=== PATIENT | female | born 1955 | race Caucasian/White ===

== ENCOUNTER 2024-06-21 14:39 | Emergency (ER) | payer SELFPAY ==
[2024-06-21 14:56] VITALS: BP 195/84; PULSE 89; RESP 18; TEMP 98.2; BMI 20.2
[2024-06-21 15:28] LABS: HEMATOCRIT 41.4 % (32.4-45.2); HEMOGLOBIN 13.8 G/dL (10.7-15.3); MCH 29.2 pg (25.7-33.7); MCHC 33.4 g/dl (32.0-36.0); MEAN CELL VOLUME 87.4 fl (80-96); MEAN PLT VOLUME 7.9 fl (7.5-11.1); PLATELET COUNT 383.4 10^3/uL (134-434); RBC 4.74 10^6/uL (3.60-5.2); RDW 13.8 % (11.6-15.6); WHITE BLOOD COUNT 7.2 10^3/uL (4.0-10.8)
[2024-06-21] MEDS: SODIUM CHLORIDE 1,000 ML IV STA ×2 (15:30→16:46)
[2024-06-21 15:36] LABS: ALBUMIN 4.5 g/dl (3.4-5.0); BILIRUBIN,TOTAL 0.3 mg/dl (0.2-1); CREATININE 1.1 mg/dl (0.6-1.3); POTASSIUM 5.1 mmol/L (3.5-5.1); TOT PROT 7.5 g/dl (6.4-8.2)
[2024-06-21 15:46] LABS: PLATELET ESTIMATE ADEQUATE
[2024-06-21 20:07] LABS: HIV INTERPRETATION NEGATIVE (NEGATIVE)
== END 2024-06-21 18:14 | disposition home or self-care (01) ==
LOC: FER 14:39
PROC: 3E0337Z Introduction of Electrolytic and Water Balance Substance into Peripheral Vein, Percutaneous Approach (ICD-10-PCS; principal; 2024-06-21)
PROC: 3E0337Z Introduction of Electrolytic and Water Balance Substance into Peripheral Vein, Percutaneous Approach (ICD-10-PCS; 2024-06-21)
DX: E11.65 Type 2 diabetes mellitus with hyperglycemia (principal); Z79.84 Long term (current) use of oral hypoglycemic drugs
CPT/HCPCS: 36415; 80053; 82962; 83930; 85027; 86803; 87389; 99284-25